=== PATIENT | female | born 1975 | race Caucasian/White ===

== ENCOUNTER → 2020-10-24 | Outpatient (CLI) | payer OTHER, BC ==
--- NOTE | 2020-10-24 10:33 | RAD ---
RIGHT HAND, VIEWS 3 Indication: Reason: RIGHT HAND PAIN FELL LAST WEEKEND / Spl. Instructions: / History: Findings: There is no acute fracture or dislocation. Bony articulations are normal. There is no bony erosion. Mineralization is normal. There is no radiographically apparent soft tissue swelling or radiopaque f oreign body. IMPRESSION: No acute fracture or dislocation. Electronically signed by: Franky Ohara MD (10/24/2020 10:31 AM) [id number]
== END ==
LOC: PMG 09:33
PROVIDERS: ATTEND Nurse Practitioner Family
DX: M79.641 Pain in right hand (principal)
CPT/HCPCS: 73130